=== PATIENT | male | born 2000 | race Caucasian/White ===

== ENCOUNTER 2023-01-11 14:06 | Emergency (ER) | payer BC ==
[2023-01-11] MEDS ORDERED: Piperacillin/Tazobactam 4.5 GM VIAL ONE (15:15)
[2023-01-11] MEDS ORDERED: Acetaminophen 500 MG TAB ONE (15:15)
[2023-01-11 15:30] LABS: #Basophils 0.1 thou/uL (0.0-0.2); #Eosinphils 0.1 thou/uL (0.0-0.7); #Monocytes 0.8 thou/uL (0.11-0.59); %Basophils 0.4 % (0.0-1.0); %Eosinophils 0.4 % (0.0-10.0); %Lymphocytes 12.8 % (21.0-51.0); %Monocytes 7.2 % (0.0-10.0); %Neutrophils 78.7 % (42.0-75.0); Hematocrit 42.1 % (42.0-52.0); Hemoglobin 13.7 g/dL (14.0-18.0); Mean Corpuscular HGB CONC 32.5 g/dL (32.0-36.0); Mean Corpuscular Hemoglobin 26.7 pg (27.0-31.0); Mean Corpuscular Volume 82.1 fl (78.0-98.0); Mean Platelet Volume 10.6 fL (7.4-10.4); Platelet Count 266 10x3/uL (130-400); Red Blood Cell (RBC) Count 5.13 mill/uL (4.70-6.10); White Blood Cell (WBC) Count 11.4 10x3/uL (4.8-10.8)
[2023-01-11 15:55] LABS: ALT (SGPT) 38 U/L (8-55); AST (SGOT) 26 U/L (5-34); Albumin 4.7 g/dL (3.5-5.0); Alkaline Phosphatase 63 U/L (40-110); Anion Gap 13 mmol/L (10-20); BUN (Urea Nitrogen) 16 mg/dL (8.9-20.6); Bilirubin, Total 0.3 mg/dL (0.2-1.2); Calc. Creatinine Clearance 0 mL/min (70-130); Calcium 9.7 mg/dL (7.8-10.44); Carbon Dioxide 27 mmol/L (22-29); Chloride 104 mmol/L (98-107); Estimated GFR 123; Globulin 2.6 g/dL (2.4-3.5); Glucose 101 mg/dL (70-105); Potassium 4.1 mmol/L (3.5-5.1); Protein, Total 7.3 g/dL (6.0-8.3); Sodium 140 mmol/L (136-145)
[2023-01-11] MEDS ORDERED: Ketorolac Tromethamine 30 MG/ML VIAL ONE (16:44)
== END 2023-01-11 17:19 | disposition home or self-care (01) ==
LOC: EEVIPCON 14:06 → ERS 14:06
DX: K04.7 Periapical abscess without sinus (principal)
CPT/HCPCS: 70491; 80053; 83605; 85025; 87040; 96365; 96375; J1885; J2543; J3370; J7030